=== PATIENT | female | born 2000 | race Caucasian/White ===

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

== ENCOUNTER 2020-02-02 13:05 | Emergency (ER) | payer SELFPAY ==
--- NOTE | 2020-02-02 13:35 | ED.PDOC ---
History of Present Illness - General Chief Complaint: Abdominal Pain Stated Complaint: RLQ ABD PAIN Time Seen by Provider: 02/02/20 13:10 Source: patient, RN notes reviewed, Vital Signs reviewed, family Exam Limitations: no limitations - History of Present Illness Initial Comments: 20 y/o female had abrupt onset of RLQ pain last evening while laying down. She slept through the night but the pain was there this morning as well. She hasn't eaten today but usually doesn't until later. Last period ended 01/30/20. She uses no contraception. No n/v/d, f/c Timing/Duration: yesterday Quality: moderate Onset Location: RLQ Radiation: none Activites at Onset: rest Improving Factors: rest Worsening Factors: movement Associated Symptoms: other - hasn't eaten today and denies being hungry Allergies/Adverse Reactions: Allergies NO KNOWN ALLERGY Allergy (Verified 02/02/20 13:25) Review of Systems - Review of Systems Constitutional: States: no symptoms reported EENTM: States: no symptoms reported Respiratory: States: no symptoms reported Cardiology: States: no symptoms reported Gastrointestinal/Abdominal: States: abdominal pain Genitourinary: States: dysuria, other - vag bleeding Musculoskeletal: States: no symptoms reported Skin: States: no symptoms reported Neurological: States: no symptoms reported Endocrine: States: no symptoms reported Hematologic/Lymphatic: States: no symptoms reported Past Medical History (General) - Patient Medical History Hx Seizures: No Hx Stroke: No Hx Dementia: No Hx Asthma: No Hx of COPD: No Hx Cardiac Disorders: No Hx Congestive Heart Failure: No Hx Pacemaker: No Hx Hypertension: No Hx Thyroid Disease: No Hx Diabetes: No Hx Gastroesophageal Reflux: No Hx Renal Disease: No Hx Cancer: No Hx of HIV: No Hx Hepatitis C: No Hx MRSA: No Surgical History: no surgical history - Vaccination History Hx Tetanus, Diphtheria Vaccination: No Hx Influenza Vaccination: No Hx Pneumococcal Vaccination: No Immunizations Up to Date: No - Social History Hx Tobacco Use: No Hx Chewing Tobacco Use: No Hx Alcohol Use: No Hx Substance Use: Yes - NOT IN 2 MONTHS Hx Substance Use Treatment: No Hx Depression: No Hx Physical Abuse: No Hx Emotional Abuse: No Hx Suspected Abuse: No - Female History Patient is a Female of Child Bearing Age (10 -59 yrs old): Yes Hx Last Menstrual Period: 01/22/18 Patient : No Family Medical History - Family History Grandparents Family History: No Known Living Status: Still Living Physical Exam - Physical Exam General Appearance: Alert, Comfortable, No apparent distress Eyes, Ears, Nose, Throat Exam: PERRL/EOMI, normal ENT inspection, pharynx normal Neck: non-tender, full range of motion, supple, normal inspection Cardiovascular/Respiratory: regular rate, rhythm, no M/R/G, no JVD, normal breath sounds, no respiratory distress Gastrointestinal/Abdominal: normal bowel sounds, soft, other - tender RLQ, no rebound or guarding Back Exam: normal inspection, no CVA tenderness Extremity: normal range of motion, non-tender, normal inspection Neurologic: fine arts model II-XII nml as tested, no motor/sensory deficits, alert, normal mood/affect, oriented x 3 Skin Exam: normal color, warm/dry Lymphatic: no adenopathy Departure - Departure Clinical Impression: Positive test, RLQ abdominal pain Time of Disposition: 15:34 Disposition: Discharge to Home or Self Care Condition: Excellent Departure Forms: ED Discharge - Pt. Copy, Patient Portal Self Enrollment Instructions: DI for Abdominal Pain-Adult, Threatened Miscarriage, Ectopic
[2020-02-02] MEDS ORDERED: ASPIRIN (CHEWABLE) 81 MG TAB PO ONE (13:57)
--- NOTE | 2020-02-02 15:09 | US ---
EXAM DESCRIPTION: Pelvis Transvaginal: Ultrasound. CLINICAL HISTORY: 20 years Female possible ectopic. LMP approximately 10 days earlier. Beta-hCG 47.7 units. COMPARISON: None. TECHNIQUE: Endovaginal scanning; Hou-scale and Doppler modes. FINDINGS: Uterus 7.2 x 2.8 x 3.1 cm 33.7 mL.. Endometrial thickness 4.7 mm. No intrauterine gestational sac. Myometrium heterogeneous. Isoechoic hypoechoic mass measuring 1.6 x 1.4 cm anterior to the endometrium. Uterus not retroflexed. Cervix 2.4 cm in length.. Cul-de-sac minimal fluid. Right ovary 1.7 x 2.6 x 2.2 cm 4.7 mL.. Reduced color Doppler vascularity. Multiple follicles but no cysts. No adnexal mass or free fluid. Left ovary 2.6 x 2.4 x 1.6 cm 5.1 mL. 2.7 mm calcification abutting the ovary. Decreased color vascularity.. Multiple follicles but no cysts. Largest follicle 1.2 cm. No adnexal mass or free fluid. IMPRESSION: 1. No intrauterine gestational sac. No ectopic gestational sac. Minimal fluid in the cul-de-sac. 2. No endometrial thickening. 1.6 cm fibroid anterior to the endometrium. 3. Bilateral ovarian follicles but nonenlarged ovaries. No adnexal mass or free fluid. Electronically signed by: Jose Sinclair MD 02/02/2020 3:08 PM CDT
[2020-02-02 15:44] VITALS: BP 110/82; TEMP 97; O2SAT 97
== END 2020-02-02 15:44 | disposition home or self-care (01) ==
LOC: ER 13:05
DX: O26.899 Other specified pregnancy related conditions, unspecified trimester (principal); R10.31 Right lower quadrant pain; R30.0 Dysuria; O46.90 Antepartum hemorrhage, unspecified, unspecified trimester; Z32.01 Encounter for pregnancy test, result positive

== ENCOUNTER 2020-07-20 00:44 | Emergency (ER) | payer SELFPAY ==
[2020-07-20] MEDS ORDERED: ACETAMINOPHEN-CAFF-BUTALBITAL 1 EA TAB PO ONE (00:59)
[2020-07-20] MEDS ORDERED: predniSONE 20 MG TAB PO ONE (00:59)
--- NOTE | 2020-07-20 01:02 | ED.PDOC ---
History of Present Illness - General Time Seen by Provider: 07/20/20 00:45 Source: patient Exam Limitations: no limitations - History of Present Illness Initial Comments: The patient is a 20-year-old female G2, P1 at 6 weeks presented to the emergency room secondary to reportedly left hip pain for the last couple of hours. On examination however the patient is actually having pain over the L5- S1 and sacroiliac joint on the left. There is no crepitus. No recent trauma. There also may be a little pain over the rhomboid muscle as well down lower. No loss of fluid. No vaginal bleeding. The patient miscarried her first in around 4 weeks according to her. Normal active and passive range of motion of the hip. The patient reports that she does have chronic straightening of her lumbar spine giving her intermittent pinched nerve sensations. Timing/Duration: 1-3 hours Severity: moderate Improving Factors: nothing Worsening Factors: movement, other - Palpation Associated Symptoms: denies symptoms Allergies/Adverse Reactions: Allergies NO KNOWN ALLERGY Allergy (Verified 02/02/20 13:25) Review of Systems - Review of Systems Constitutional: States: no symptoms reported EENTM: States: no symptoms reported Respiratory: States: no symptoms reported Cardiology: States: no symptoms reported Gastrointestinal/Abdominal: States: no symptoms reported Genitourinary: States: no symptoms reported Musculoskeletal: States: see HPI Skin: States: no symptoms reported Neurological: States: no symptoms reported Endocrine: States: no symptoms reported Hematologic/Lymphatic: States: no symptoms reported All other Systems: No Change from Baseline Past Medical History (General) - Patient Medical History Hx Seizures: No Hx Stroke: No Hx Dementia: No Hx Asthma: No Hx of COPD: No Hx Cardiac Disorders: No Hx Congestive Heart Failure: No Hx Pacemaker: No Hx Hypertension: No Hx Thyroid Disease: No Hx Diabetes: No Hx Gastroesophageal Reflux: No Hx Renal Disease: No Hx Cancer: No Hx of HIV: No Hx Hepatitis C: No Hx MRSA: No - Vaccination History Hx Tetanus, Diphtheria Vaccination: No Hx Influenza Vaccination: No Hx Pneumococcal Vaccination: No - Social History Hx Tobacco Use: No Hx Chewing Tobacco Use: No Hx Alcohol Use: No Hx Substance Use: Yes - NOT IN 2 MONTHS Hx Substance Use Treatment: No Hx Depression: No Hx Physical Abuse: No Hx Emotional Abuse: No Hx Suspected Abuse: No - Female History Hx Last Menstrual Period: 01/22/18 Patient : No Family Medical History - Family History Grandparents Family History: No Known Living Status: Still Living Physical Exam - Physical Exam General Appearance: Alert, Comfortable, No apparent distress Eye Exam: bilateral normal Ears, Nose, Throat: hearing grossly normal Neck: full range of motion Respiratory: no respiratory distress, no accessory muscle use Cardiovascular/Chest: no edema Peripheral Pulses: radial,left: 2+ Gastrointestinal/Abdominal: non tender Rectal Exam: deferred Back Exam: no vertebral tenderness, other - See history of present illness. 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 This appears to primarily be pain from the L5-S1 to sacroiliac joint on the left. I do recommend stretches for the patient. Topical heat may also prove beneficial. Tonight she has been given a dose of prednisone as an anti-inflammatory and Fioricet for pain control. She needs to keep her self well-hydrated. She does need to contact her installment loan collector tomorrow for their recommendations for pain control, as they will likely be different than mine. ER warnings are given for any significant worsening. heart tones determined by bedside low resolution ultrasound approximately 130s. [email or web address] [id number] 07/20/20 01:33 Departure - Departure Clinical Impression: Arthritis of lumbosacral spine Disposition: Discharge to Home or Self Care Condition: Fair Instructions: Low Back Pain (DC) Diet: regular diet Activity: increase activity as tolerated Referrals: Shasta Abarca MD [Primary Care Provider] - 1-2 Weeks Additional Instructions: The patient is a 20-year-old female presented emergency room secondary to left low back to hip pain. This appears to primarily be pain from the L5-S1 to sacroiliac joint on the left. I do recommend stretches for the patient. Topical heat may also prove beneficial. Tonight she has been given a dose of prednisone as an anti-inflammatory and Fioricet for pain control. She needs to keep her self well-hydrated. She does need to contact her installment loan collector tomorrow for their recommendations for pain control, as they will likely be different than mine. ER warnings are given for any significant worsening.
[2020-07-20 01:46] VITALS: BP 104/58; TEMP 98.1; O2SAT 99
== END 2020-07-20 01:45 | disposition home or self-care (01) ==
LOC: ER 00:44
DX: O26.891 Other specified pregnancy related conditions, first trimester (principal); M47.817 Spondylosis without myelopathy or radiculopathy, lumbosacral region; M25.552 Pain in left hip; Z3A.01 Less than 8 weeks gestation of pregnancy

== ENCOUNTER 2020-08-19 23:26 | Emergency (ER) | payer MEDICAID ==
[2020-08-19 23:38] VITALS: TEMP 97.7; O2SAT 99
--- NOTE | 2020-08-19 23:45 | ED.PDOC ---
History of Present Illness - General Chief Complaint: Back Pain or Injury Stated Complaint: back pain radiates to abd, 21 wks gestation Time Seen by Provider: 08/19/20 23:44 Source: patient, family Exam Limitations: no limitations Additional Information: Patient is currently at 21 weeks gestation and under the care of an test bore helper - History of Present Illness Initial Comments: Patient states about 11:30 PM while she was laying in a prone position on the floor she got up and developed a sudden onset of a very sharp pain on the left side of her back which radiated up into her upper abdomen. The pain lasted for about 15 seconds before subsiding. Minimal discomfort now. Patient did not have any radiation of pain to the back, weakness or numbness. No abdominal pain at present. No abdominal cramping or vaginal bleeding. Patient has had back strains before. Timing/Duration: 1/2 hour Severity: mild Improving Factors: rest Worsening Factors: movement Associated Symptoms: denies symptoms Allergies/Adverse Reactions: Allergies NO KNOWN ALLERGY Allergy (Verified 08/19/20 23:47) Review of Systems - Review of Systems Constitutional: States: no symptoms reported EENTM: States: no symptoms reported Respiratory: States: no symptoms reported Cardiology: States: no symptoms reported Gastrointestinal/Abdominal: States: no symptoms reported Genitourinary: States: no symptoms reported Musculoskeletal: States: see HPI, back pain Skin: States: no symptoms reported Neurological: States: no symptoms reported Endocrine: States: no symptoms reported Hematologic/Lymphatic: States: no symptoms reported Past Medical History (General) - Patient Medical History Hx Seizures: No Hx Stroke: No Hx Dementia: No Hx Asthma: No Hx of COPD: No Hx Cardiac Disorders: No Hx Congestive Heart Failure: No Hx Pacemaker: No Hx Hypertension: No Hx Thyroid Disease: No Hx Diabetes: No Hx Gastroesophageal Reflux: No Hx Renal Disease: No Hx Cancer: No Hx of HIV: No Hx Hepatitis C: No Hx MRSA: No Surgical History: no surgical history - Vaccination History Hx Tetanus, Diphtheria Vaccination: No Hx Influenza Vaccination: No Hx Pneumococcal Vaccination: No - Social History Hx Tobacco Use: No Hx Chewing Tobacco Use: No Hx Alcohol Use: No Hx Substance Use: Yes Hx Substance Use Treatment: No Hx Depression: No Hx Physical Abuse: No Hx Emotional Abuse: No Hx Suspected Abuse: No - Female History Hx Last Menstrual Period: 01/22/18 Patient : No Family Medical History - Family History Grandparents Family History: No Known Living Status: Still Living Physical Exam - Physical Exam General Appearance: Alert, Comfortable Eye Exam: bilateral normal Ears, Nose, Throat: normal ENT inspection Neck: non-tender, full range of motion Respiratory: normal breath sounds Cardiovascular/Chest: regular rate, rhythm Gastrointestinal/Abdominal: normal bowel sounds, non tender, soft, other - Gravid uterus, soft and nontender Back Exam: normal inspection, other - Mild tenderness of the lower left lateral paraspinous muscles. Full range of motion. Extremity: normal range of motion, no pedal edema, no calf tenderness Neurologic: rock wool applicator II-XII nml as tested, no motor/sensory deficits, other - Straight leg raising negative bilaterally Skin Exam: normal color Lymphatic: no adenopathy Progress - Progress Progress: 08/19/20 23:58 Tylenol 1 g p.o. - Results/Orders Results/Orders: Vital Signs - 24 hr 08/19/20 08/19/20 23:30 23:57 Temperature 97.7 F 97.7 F Pulse Rate [ 84 80 monitor] Respiratory 20 16 Rate Blood Pressure 116/79 112/76 [Right Arm] O2 Sat by Pulse 99 99 Oximetry Departure - Departure Clinical Impression: Back strain, Time of Disposition: 23:53 Disposition: Discharge to Home or Self Care Condition: Good Departure Forms: ED Discharge - Pt. Copy, Patient Portal Self Enrollment Instructions: DI for Low Back Pain, Back Muscle Strain (DC) Diet: resume usual diet Activity: other - Rest, activity as tolerated Referrals: ADELA ROCHA [Primary Care Provider] - 1-2 Weeks Additional Instructions: Use [id number] Tylenol as needed for pain. If your back pain persists or worsens contact your test bore helper for prescription of a muscle relaxer which would be safe in .
[2020-08-19] MEDS ORDERED: ACETAMINOPHEN 500 MG TAB PO ONE (23:52)
[2020-08-19 23:58] VITALS: BP 112/76
== END 2020-08-19 23:58 | disposition home or self-care (01) ==
LOC: ER 23:26
DX: O9A.212 Injury, poisoning and certain other consequences of external causes complicating pregnancy, second trimester (principal); S39.012A Strain of muscle, fascia and tendon of lower back, initial encounter; Z3A.21 21 weeks gestation of pregnancy; X50.9XXA Other and unspecified overexertion or strenuous movements or postures, initial encounter; Y92.9 Unspecified place or not applicable